=== PATIENT | female | born 1985 | race Two or more races ===

== ENCOUNTER 2024-04-22 13:35 | Outpatient (CLI) | payer OTHER | END 2024-04-22 13:41 | disposition home or self-care (01) | LOC: PRENATAL 13:35 | PROVIDERS: ATTEND Obstetrics & Gynecology Maternal & Fetal Medicine | DX: O36.80X0 Pregnancy with inconclusive fetal viability, not applicable or unspecified (principal); Z36.82 Encounter for antenatal screening for nuchal translucency; O09.529 Supervision of elderly multigravida, unspecified trimester; O26.20 Pregnancy care for patient with recurrent pregnancy loss, unspecified trimester; Z3A.13 13 weeks gestation of pregnancy ==